=== PATIENT | female | born 2000 | race Caucasian/White ===

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

== ENCOUNTER 2021-07-31 17:30 | Inpatient (IN) | payer MEDICAID, SELFPAY ==
[2021-07-31] VITALS (7 sets, daily range): BP systolic 117–131; BP diastolic 61–83; PULSE 67–96; TEMP 36.4–36.8; O2SAT 98; BMI 33.8
[2021-07-31 18:29] LABS: Absolute Lymphocyte Count 1.74 X10^3/uL (0.83-4.51); Absolute Neutrophil Count 9.2 X10^3/uL (2.0-7.7); Basophil# 0.02 X10^3/uL; Basophil% 0.2 % (0-1); Eosinophil# 0.04 X10^3/uL; Eosinophils% 0.3 % (0-5); Hematocrit 33.3 % (37-47); Hemoglobin 10.9 g/dL (12.0-15.0); Lymphocyte # 1.74 X10^3/ul (0.83-4.51); Lymphocyte % 14.9 % (19-41); Mean Corp Hgb Conc 32.7 g/dL (32-36); Mean Corpuscular Hgb 27.5 pg (27.0-32.0); Mean Corpuscular Volume 83.9 fL (81-99); Mean Platelet Vol. 9.6 fl (6.2-12.0); Monocyte# 0.54 X10^3/uL; Monocyte% 4.6 % (0-10); NRBC Flagged by Analyzer 0 % (0-5); Neutrophil # 9.21 X10^3/uL (2.7-7.7); Neutrophil % 79.1 % (47-70); Platelet Count 262 K/mm3 (150-450); RBC Distribution Width CV 14.6 % (11.6-14.6); RBC Distribution Width SD 44.4 fl (35.1-43.9); Red Blood Count 3.97 M/mm3 (4.2-5.4); White Blood Count 11.7 K/mm3 (4.4-11.0)
[2021-07-31] MEDS: Lactated Ringers 1,000 ML 50 ML IV (18:36)
[2021-07-31 19:01] LABS: Amphetamine Urine VISTA NEGATIVE (<1000 ng/mL); Barbiturate Urine VISTA NEGATIVE (< 200 ng/mL); Benzodiazepine Urine VISTA NEGATIVE (< 200 ng/mL); Cocaine Urine VISTA NEGATIVE (< 300 ng/mL); Ecstacy Urine VISTA NEGATIVE (< 500 ng/mL); Methadone Urine VISTA NEGATIVE (< 300 ng/mL); PCP Urine VISTA NEGATIVE (< 25 ng/mL); THC Urine VISTA NEGATIVE (< 50 ng/mL); Vista UDS pH Range 6
[2021-07-31] MEDS: Oxytocin 30 units/NS 500 ml 30 UNITS/500 ML IV.SOLN IV (20:37)
[2021-08-01] VITALS (34 sets, daily range): BP systolic 98–140; BP diastolic 55–89; PULSE 67–112; RESP 15–16; TEMP 36.2–37.3; O2SAT 94–100
[2021-08-01] MEDS: Lactated Ringers 500 ML 999 ML IV ×2 (01:38→04:24)
[2021-08-01] MEDS: fentaNYL-bupivacaine (epidural) 100 ML BAG EPIDURAL ×2 (02:27→07:54)
--- NOTE | 2021-08-01 02:42 | PCM.HP.OB ---
HPI - General General Date of Admission: 07/31/21 HPI Narrative RENETTA TANNER, is a 21 F who presents at 40w3d for induction of labor due to term gestation and BPP 6/8 in office today. No contractions, vaginal bleeding or leakage of fluid. complicated by vaping during first trimester of , marijuana use that stopped in late first trimester of , anxiety and depression. Family present at bedside. Maternal Data Information KARRI Calculator Estimated Delivery Date Method Current WG Current Estimate 07/28/21 Manual 40w 4d PFSH PFSH Medical History (Updated 08/01/21 @ 02:51 by Julia Foster CNM) Asthma Depression Iron deficiency anemia Home Medications vit-iron fum-folic ac [ Fa] 1 tab PO DAILY 07/31/21 [History Last Taken 07/30/21 21:00] Allergy/AdvReac Type Severity Reaction Status Date / Time metronidazole [From Flagyl] Allergy Unknown Verified 05/04/17 16:44 Surgical History (Updated 07/31/21 @ 18:28 by Shira Hanna) History of surgery Social History Smoking Status: Current every day smoker History Elective abortions Hx Para 0 Spontaneous abortions Hx # Term Pregnancies Ectopic pregnancies Hx # Pregnancies Multiple births # of living children NST FHR Rate Baby A Baseline: 115 Variability:: Moderate Accelerations:: 15 x 15 Decelerations:: None FHR Category:: Category I Uterine Activity:: Every 2-3 minutes, strong ROS Constitutional Constitutional: Reports systems reviewed and no addt'l complaints, except as documented; Denies headache(s) Eyes Eyes: Denies acute decrease in peripheral vision, blurry vision or change in vision ENT HEENT: Reports systems reviewed and no addt'l complaints, except as documented Cardiovascular Cardiovascular: Denies chest pain or dizziness Respiratory/Chest Respiratory/Chest: Denies cough, dyspnea, dyspnea on exertion, shortness of breath at rest or shortness of breath with exertion Gastrointestinal Gastrointestinal: Denies abdominal pain, diarrhea, nausea or vomiting Genitourinary Genitourinary: Denies abdominal discomfort or movement Musculoskeletal Musculoskeletal: Denies limited range of motion Integumentary Integumentary: Reports systems reviewed and no addt'l complaints, except as documented Neurologic Neurologic: Reports systems reviewed and no addt'l complaints, except as documented Psychiatric Psychiatric: Reports systems reviewed and no addt'l complaints, except as documented Endocrine Endocrinology: Reports systems reviewed and no addt'l complaints, except as documented Hematologic/Lymphatic Hematologic/Lymphatic: Reports systems reviewed and no addt'l complaints, except as documented Allergic/Immunologic Allergic/Immunologic: Reports systems reviewed and no addt'l complaints, except as documented Vital Signs Vital Signs Vital Signs: 07/31/21 17:47 07/31/21 17:50 07/31/21 19:13 Temperature 98.2 F 97.9 F Temperature Source Temporal Temporal Pulse Rate 96 96 93 Blood Pressure 120/67 120/67 125/73 H BP Systolic 120 120 125 BP Diastolic 67 67 73 Pulse Ox 98 07/31/21 20:44 07/31/21 21:53 07/31/21 23:40 Temperature 98.0 F 97.6 F L Temperature Source Temporal Temporal Pulse Rate 81 69 Blood Pressure 131/83 H 117/61 BP Systolic 131 117 BP Diastolic 83 61 Pulse Ox 07/31/21 23:43 08/01/21 02:10 08/01/21 02:11 Temperature Temperature Source Pulse Rate 67 101 H 99 Blood Pressure 123/61 H BP Systolic 123 BP Diastolic 61 Pulse Ox 97 94 08/01/21 02:15 08/01/21 02:20 08/01/21 02:25 Temperature Temperature Source Pulse Rate 81 78 78 Blood Pressure 138/89 H 123/80 H BP Systolic 138 123 BP Diastolic 89 80 Pulse Ox 100 100 99 08/01/21 02:27 08/01/21 02:30 08/01/21 02:35 Temperature Temperature Source Pulse Rate 73 75 78 Blood Pressure 113/61 109/55 L 106/59 L BP Systolic 113 109 106 BP Diastolic 61 55 59 Pulse Ox 99 98 08/01/21 02:40 08/01/21 02:41 Temperature Temperature Source Pulse Rate 77 Blood Pressure 107/57 L BP Systolic 107 BP Diastolic 57 Pulse Ox 98 Weight Weight: 203 lb 7.787 oz Body Mass Index (BMI) 33.8 Physical Exam Const alert and oriented x3 General Appearance: cooperative Orientation / Consciousness: awake, oriented to person, oriented to place and oriented to time Exam Limitations: no limitations HEENT normocephalic Head and Scalp: normal to inspection, normocephalic and atraumatic Face and Sinus: normal facial exam Eyes General Eye: normal appearance of both eyes Neck full ROM Chest Chest: symmetrical chest wall rise Resp normal respiratory effort and normal air movement Auscultation: clear to auscultation bilaterally Cardio regular rate, regular rhythm, S1 normal heart sound, S2 normal heart sound, no murmurs, no rub, no gallops and no clicks GI normal to inspection, nondistended, normoactive bowel sounds and non-tender appearance of the vagina normal Bladder / Kidney Exam: no CVA tenderness Manual OB Exam: estimated gestational size appropriate, presentation cephalic, dilated 2cm, effaced 70, station -1 and other vertex per nursing exam Back/Spine normal ROM Extremity normal to inspection and full ROM Skin no rashes or lesions noted Neuro oriented x3, CN's II-XII intact bilaterally and moves all extremities Sensorium / Orientation: awake, alert and oriented to person Motor Exam: clonus absent Deep Tendon Reflexes: Rt Patellar (L4): 2+ and Lt Patellar (L4): 2+ Labs Labs Labs: Blood Type A POSITIVE Antibody Screen NEGATIVE Hct 33.3 % (37-47) L Hgb 10.9 g/dL (12.0-15.0) L Urine drug screen negative 07/24/21 GBS negative RPR negative A positive Rubella Immune HBsAG negative HepC negative HIV negative GC/CT negative Assessment & Plan (1) Encounter for induction of labor: (2) History of depression: (3) History of anxiety: (4) History of marijuana use: (5) History of nicotine vaping: PLAN: 1) Admit to labor and delivery 2) Routine labs 3) COVID negative 4) GBS negative 5) Category 1 FHT 6) Induction of labor due to BPP 6/8 in office today and recommendation by MFM for IOL 7) Pitocin per policy 8) Continuous EFM 9) Epidural for pain management upon request 10) collaborative physician and notified of patient status
[2021-08-01] MEDS: Lactated Ringers 1,000 ML 200 ML IV (04:53)
[2021-08-01] MEDS: Oxytocin 30 units/NS 500 ml 30 UNITS/500 ML IV.SOLN 334 UNITS IV (08:52)
--- NOTE | 2021-08-01 09:21 | EX.PCM.OBRPT ---
Maternal Data Information KARRI Calculator Estimated Delivery Date Method Current WG Current Estimate 07/28/21 Manual 40w 4d Vaginal Delivery Maternal Presentation Maternal Presentation: Medically Indicated Induction Maternal Presentation: BPP 6/8 at office and M recommended induction Type of Induction: Pitocin Operative Information Date of Procedure: 08/01/21 Pre-Operative Diagnosis: Non reassuring well being Post-Operative Diagnosis: Same Surgery / Procedure Performed: Spontaneous Vaginal Delivery Type of Anesthesia: Epidural Estimated Blood Loss: 350ml Findings Description of Procedure: Patient prepped & draped when C/C/+2. She pushed well & ritgen maneuver performed to deliver the head. head gently guided to allow delivery of anterior and posterior shoulders. No excess traction placed on head. Body delivered and 3VC clamped & cut in delayed fashion. Placenta delivered with gentle traction and good uterine tone obtained. Presentation: JOJO Amniotic Fluid Description: Clear Placental Delivery Description: Expressed Placenta Disposition: [facility] Specimen(s) Removed: Placenta Cord Vessel Description: 3 Vessels Cord Entanglement: Around neck x 1, loose Nuchal Cord Compression: With compression Infant A Gender: Male (Husam) (1 minute): 8 (5 minute): 9 Delayed Cord Clamping: Yes Post Vaginal Delivery Medications Given After Delivery: IV Pitocin Episiotomy Description: None Laceration: 1st degree (perineal - repaired with 3-0 vicryl) Complication Complications: None
[2021-08-01] MEDS: Hydrocortisone 2.5% Crm 1 APPLIC TOPICAL (10:31)
[2021-08-01] MEDS: Ibuprofen 600 MG Tablet PO (16:05)
[2021-08-02] VITALS (7 sets, daily range): BP systolic 112–135; BP diastolic 68–83; PULSE 74–90; RESP 14–18; TEMP 36.5–36.8; O2SAT 97–98
--- NOTE | 2021-08-02 03:30 | NURSING ---
two small golf ball sized clots expelled when pt up to bathroom, pt remains asymptomatic, bleeding otherwise WNL
[2021-08-02] MEDS: Ibuprofen 600 MG Tablet PO (03:48)
--- NOTE | 2021-08-02 07:15 | NURSING ---
bedside report given to Ariane Clarke RN who is assuming care of pt at this time
--- NOTE | 2021-08-02 07:43 | PN.OBGYN_ITS ---
Subjective Subjective Pain well controlled. Average lochia. Objective Data Objective Data Vital Signs: Vital Signs Temp Pulse Resp BP Pulse Ox 97.9 F 90 18 133/68 H 98 08/02/21 03:37 08/02/21 03:40 08/02/21 03:37 08/02/21 03:40 08/02/21 03:37 Oxygen Delivery Method Room Air Weight: 92.3 kg Body Mass Index (BMI) 33.8 Intake & Output: Intake and Output for Last 24 Hours 07/31/21 08/01/21 08/02/21 23:59 23:59 23:59 Intake Total 16.77 / 16.77 3308.59 / 3308.59 Output Total 500 / 500 Balance 16.77 / 16.77 2808.59 / 2808.59 Lab / Micro Data Result Diagrams: 07/31/21 18:10 Micro: Microbiology 07/31/21 18:10 Nasal Secretion SARS-CoV-2 Antigen (Rapid) - Final Physical Exam Const alert and no apparent distress Narrative: Fundus firm, below umbilicus. Assessment & Plan (1) (spontaneous vaginal delivery): PLAN: day 1 status post vaginal delivery. is breast- feeding and doing well. Patient is doing well. Desires discharge home today.
--- NOTE | 2021-08-02 07:44 | PCM.DC.SUM ---
Providers Date of Admission: 07/31/21 Primary Care Physician: Dr. Paul Kerns DO Reason For Visit: VAG DELIVERY Diagnosis Discharge Diagnosis (1) (spontaneous vaginal delivery): Status: Acute Code(s): O80 - Encounter for full-term uncomplicated delivery Medications at Discharge Home Medications vit-iron fum-folic ac 1 tab PO DAILY 07/31/21 ibuprofen 600 mg PO Q6H PRN 10 Days #20 tablet 08/02/21 Hospital Course Operations None Procedures None Summary of Care Provided Hospital Course: 21-year-old female at 40+ weeks admitted on 07/31/2021 for induction of labor due to BPP of 6 out of 8. She underwent induction of labor and had a spontaneous vaginal delivery on 08/01/2021 without complications. On day #1 she was ambulating, urinating tolerating regular diet. was breast-feeding and doing well. Patient desired discharge home with routine instructions. Weight / BMI Weight Weight: 92.3 kg Body Mass Index (BMI) 33.8 ABG / Lab / Microbiology Data Result Diagrams: 07/31/21 18:10 Microbiology: Microbiology 07/31/21 18:10 Nasal Secretion SARS-CoV-2 Antigen (Rapid) - Final D/C Instructions May resume sexual activity in: 6 weeks Please Follow Up With: Winnie Delgado MD When: Follow up with our office in 1-2 and 6 weeks or as needed. [phone] Meaningful Use Info Meaningful Use Diagnoses (Choose all that apply): None applicable Discharge Plan Admission Admit Date/Time: 07/31/21 17:30 Primary Reason for Your Visit: Induction of labor and vaginal delivery Attending Provider: Joe Wood Primary Care Provider: Paul Kerns Discharge Orders/Prescriptions Prescriptions: New ibuprofen [ibuprofen] 600 MG tablet 600 mg PO Q6H PRN (Reason: Pain) 10 Days Qty: 20 RF: 1 Continued vit-iron fum-folic ac 60 mg iron-1 mg Tablet 1 tab PO DAILY RF: 0 Referrals / Follow Up: Paul Kerns DO [Primary Care Provider] - Disposition Disposition (needs filled in before D/C Order can be placed): Home, Self Care
== END 2021-08-02 17:00 | disposition home or self-care (01) | DRG 560 ==
PROVIDERS: Advanced Practice Midwife; Admitting Provider Obstetrics & Gynecology; PCP Student in an Organized Health Care Education/Training Program; Visit Provider Obstetrics & Gynecology
DX: O76 Abnormality in fetal heart rate and rhythm complicating labor and delivery (principal); Z37.0 Single live birth; O99.324 Drug use complicating childbirth; F12.99 Cannabis use, unspecified with unspecified cannabis-induced disorder; F17.290 Nicotine dependence, other tobacco product, uncomplicated; O99.334 Smoking (tobacco) complicating childbirth; Z20.822 Contact with and (suspected) exposure to COVID-19; Z3A.40 40 weeks gestation of pregnancy; O70.0 First degree perineal laceration during delivery; O69.81X0 Labor and delivery complicated by cord around neck, without compression, not applicable or unspecified
CPT/HCPCS: 59025; 59050; 80307; 85025; 86850; 86900; 86901; 87426; 99218; 99406; J7120; G0378